=== PATIENT | female | born 1990 | race Caucasian/White ===

== ENCOUNTER 2017-08-17 11:07 | Inpatient (IN) | payer OTHER, MEDICAID ==
[~2017-08-17] VITALS: Ht 166.4 cm; Wt 67.1 kg
[~2017-08-17 11:07] MED LIST: ACET-1718 PO; ACET-3143 PO; IBU600 PO; IBU800 PO; IBUP800T37 PO; KET10 PO; LANT TOP; MET2 PO; PEN250 PO; PER PO; PREN-85 PO; [UNRECOGNIZED DRUG - CODE] MM
[2017-08-17] MEDS ORDERED: fentaNYL CITR 100 MCG/2 ML AMP IVP PRN (11:20)
[2017-08-17] MEDS ORDERED: METOCLOPRAMIDE 10 MG/2 ML SDV IVP PRN (11:20)
[2017-08-17] MEDS ORDERED: LIDOCAINE/SOD BICARB 8.4% SYR SC PRN (11:20)
[2017-08-17] MEDS ORDERED: FLUSH 10 ML SYR IVP PRN (11:20)
[2017-08-17] MEDS ORDERED: OXYTOCIN 30 UNIT/D5LR 500 ML 500 ML IV PRN (11:20)
[2017-08-17] MEDS ORDERED: FAMOTIDINE(*) 20MG/50ML PREMIX 50 ML IVPB PRN (11:20)
[2017-08-17] MEDS ORDERED: LIDOCAINE 1% LOCAL 300 MG/30ML INJ PRN (11:20)
[2017-08-17 11:47] LABS: PLATELET COUNT, AUTOMATED 185 K/uL (150-450)
[2017-08-17] MEDS: LR(*) 1000 ML BAG 1,000 ML IV SCH ×3 (12:00→22:28)
--- NOTE | 2017-08-17 12:34 | RADIOLOGY IMAGING REPORT ---
FACILITY: [facility] [place] PATIENT NAME: Erika Crump : 1990 MR: [id number] V: [id number] EXAM DATE: ORDERING PHYSICIAN: KT LESLIE TECHNOLOGIST: Location: [facility] Patient: Erika Crump : 1990 Visit/Account:[id number] Date of Sevice: 08/17/2017 Examination: OB >14 WEEKS Comparison: None. History: confirm interuterine demise. 31 week 5 day gestation by LMP. Findings: Focused transabdominal obstetric ultrasound with color Doppler and M-mode. Single intrauterine gestation in cephalic lie. No cardiac activity is identified on either beltran scale imaging, color Doppler, or M-mode. Overlapping calvarial bones. Anterior placenta. Parameters: Biparietal diameter: 7.75 cm, 31 weeks 1 day Head circumference: 28.59 cm, 31 weeks 3 days Abdominal circumference: 23.48 cm, 27 weeks 6 days Femur length: 6.02 cm, 31 weeks 3 days Composite gestational age based on Hadlock criteria is 30 weeks 4 days for an estimated delivery flakita e of 10/22/2017. Estimated weight is 1416 g which is at the third percentile based on LMP. IMPRESSION: demise. Results were discussed with KT LESLIE at 08/17/2017 12:31 PM. Report Dictated By: Modesto Love MD at 08/17/2017 12:17 PM Report E-Signed By: Modesto Love MD at 08/17/2017 12:31 PM WSN:[id number]
[2017-08-17 14:22] VITALS: BP 119/69; Ht 166.4 cm; Wt 67.1 kg
[2017-08-17] MEDS ORDERED: LIDO/EPI 2% MPF 1:200,000 20ML EPI PRN (15:15)
[2017-08-17] MEDS ORDERED: LIDOCAINE/PF 2% 200MG/10ML AMP 200 MG/10 ML AMPUL EPI PRN (15:15)
[2017-08-17] MEDS ORDERED: BUPIVACAINE 0.25% MPF INJ EPI PRN (15:15)
[2017-08-17] MEDS ORDERED: fentaNYL CITR 100 MCG/2 ML AMP IT PRN (15:15)
[2017-08-17] MEDS ORDERED: EPIDURAL KEYS XX PRN (15:15)
[2017-08-17] MEDS ORDERED: FENTANYL/ROPIVACAINE 100 ML BAG EPI PRN (15:15)
[2017-08-17] MEDS ORDERED: BUPIVACAINE 0.5% INJ 30ML VIAL EPI PRN (15:15)
[2017-08-17] MEDS: MISOPROSTOL 25 MCG CAP PV PRN ×2 (17:19→21:19)
--- NOTE | 2017-08-17 17:45 | History & Physical ---
History of Present Illness Age of Patient: 27 : 5 Para or TPAL: 3 EDC per LMP: Oct 15, 2017 Estimated Gestational Age: 31.4 Chief Complaint Decreased movement History of Present Illness Presented to office today with report of no movement since Thursday. IUFD confirmed on u/s in office. Discussed management with induction of labor and pt sent to [facility] for this. Healthy and pt. No complications. Healthy normal prior term deliveries. Past Medical, Surgical, Family and Obstetric Histories reviewed. Please see ACOG chart. History Allergies: Coded Allergies: No Known Allergies (Verified Allergy, Mild, 06/05/10) Family History: No Family History of: FH: diabetes mellitus FH: heart disease Malignant hyperthermia Med Rec Home Meds Reported Medications Vits W-Ca,Fe,Fa(<1MG) () 1 Each Tablet, 1 EACH PO, 0 Refills take while breast feeding 08/14/11 Discontinued Reported Medications Lanolin (Lanolin Oint) 30 Gm Oint, 0 TOP PRN, 0 Refills APPLY to Nipples as needed 08/14/11 Discontinued Scripts Ibuprofen (IBUPROFEN) 800 Mg Tablet, 1 TAB PO Q8H Y for PAIN, #30 TAB 0 Refills Prov:MILDRED OTOOLE MD 08/01/14 Acetaminophen With Codeine # 3 (ACETAMINOPHEN-COD #3 TABLET) 1 Each Tablet, 1-2 EACH PO Q4H Y for PAIN, #30 TAB 0 Refills Prov:MILDRED OTOOLE MD 08/01/14 Review of Systems All Systems Reviewed/Normal: Yes, Except as Noted Exam General Exam Vital Signs Vital Signs Date Time Temp Pulse Resp B/P (MAP) Pulse Ox O2 Delivery O2 Flow Rate FiO2 08/17/17 14:22 98.6 68 18 119/69 (86) 95 Room Air General Apperance: Alert/Awake/No Acute Distress Neuro: No Gross deficits ENT: Normal Cardiovascular: Regular Rate and Rhythm Respiratory: No Respiratory Distress Abdomen: Soft, Non-Tender, Non-Distended Integumentary: Skin Intact without Lesions or Rash Psychological: Alert & Oriented X3, Appropriate Mood & Affect Cervical Dialation: 2 Cervical Effacement (%): 50 Cervical Consistency: Moderate Cervical Position: Posterior Station: -2 Presentation: Vertex Medical Decision Making Data Points Result Diagram: 08/17/17 1136 VTE Prophylasis: Adult Deep Vein Thrombosis/Pulmonary: No Pharmacological Contraindicati: Pt at Low Risk for VTE Mechanical Contraindications: Pt at Low Risk for VTE Assessment and Plan Problems: (1) demise, greater than 22 weeks, antepartum, single gestation Assessment & Plan: Discussed plan to use cytotec for cervical ripening and labor induction and transition to Pitocin as progress is made. Plan to rupture membranes as cervix dilates a little more and comes forward. Expecting . Suspecting cord accident. (2) Rh negative status during Status: Acute Assessment & Plan: Rhogam with delivery. Problem Qualifiers (1) Rh negative status during : Trimester: third trimester Qualified Codes: O09.893 - Supervision of other high risk pregnancies, third trimester KT LESLIE MD Aug 17, 2017 17:45
--- NOTE | 2017-08-17 23:26 | Anesthesia OB Pre-Anes Eval ---
History of Present Illness Anesthesia Start Date: Aug 17, 2017 Anesthesia Start Time: 22:25 OB Anesthesia Diagnosis: induction - elective Complications: demise EDC: Oct 15, 2017 : 5 Para: 3 Vital Signs: Vital Signs Date Time Temp Pulse Resp B/P (MAP) Pulse Ox O2 Delivery O2 Flow Rate FiO2 08/17/17 14:22 98.6 68 18 119/69 (86) 95 Room Air Pain Ratin Result Diagram: 08/17/17 1136 Height (Inches): 65.50 Weight (Pounds): 148 BMI Calculated: 24.25 Past Medical History Medical History: no pertinent history Surgical History: other (wrist and foot, D&C) Previous Anesthesia: general, epidural Attended Childbirth Classes?: No Hx Anesthesia Reactions: No Hx Family Anesthesia Reaction: No Home Meds Reported Medications Vits W-Ca,Fe,Fa(<1MG) () 1 Each Tablet, 1 EACH PO, 0 Refills take while breast feeding 08/14/11 Discontinued Reported Medications Lanolin (Lanolin Oint) 30 Gm Oint, 0 TOP PRN, 0 Refills APPLY to Nipples as needed 08/14/11 Discontinued Scripts Ibuprofen (IBUPROFEN) 800 Mg Tablet, 1 TAB PO Q8H Y for PAIN, #30 TAB 0 Refills Prov:MILDRED OTOOLE MD 08/01/14 Acetaminophen With Codeine # 3 (ACETAMINOPHEN-COD #3 TABLET) 1 Each Tablet, 1-2 EACH PO Q4H Y for PAIN, #30 TAB 0 Refills Prov:MILDRED OTOOLE MD 08/01/14 Allergies: Coded Allergies: No Known Allergies (Verified Allergy, Mild, 06/05/10) Anesthesia OB ROS Neurological: No migraines/headaches, No seizures, No neuropathy ENT: Denies Tooth caps, Denies Loose teeth, Denies Chipped teeth, Denies Dentures, Denies Bridges, Denies Retainers, Denies Veneers, Denies Implants, Denies Tongue ring Pulmonary: No asthma, No smoker (pks/day/yrs) Airway Class: ll Cardiovascular ROS: No edema, No arrhythmia GI ROS: clear liquids Last Solids Date: Aug 17, 2017 ROS: No Herpes, No STD(s), No Liver Disease, No Renal Disease, Other Endocrine ROS: No diabetes, No gestational diabetes, No thyroid disorder Musculoskeletal ROS: No low back pain, No low back injury, No scoliosis ASA Classification: 2 Assessment and Plan Anesthesia Plan: CSE Assessment Past Medical, Surgical, Family and Obstetric Histories reviewed. Please see ACOG chart. Epidural anesthesia risks, complications and benefits explained to patient's satisfaction for labor and vaginal delivery and/or section. Reviewed experiences with last epidurals. No problems noted. Pt. states she legs were very numb and unable to move. States she prefers to have "liquid chlorine operator" medication. TAYLOR SANCHEZ CRNA Aug 17, 2017 23:26
--- NOTE | 2017-08-17 23:31 | Procedure Note ---
Anesthetic Placement Note Anesthesia Plan: CSE Permit for Anesthesia Signed: Yes Anesthesia Technique: Patient Sitting Anesthesia Prep: Chlorhexidine Interspace: L 3-4 Local Anesthetic: 1% Lidocaine, 25 Gauge Needle Amount Local - cc's: 2 Anesthesia Needle: 17g Touhy/Schliff Anesthesia Attempts: 1 Depth of LOS (cm): 4 Epidural Needle Placement: No CSF, No Blood, No Parasthesia Intrathecal Needle: 27 Gauge Pencan Cerebral Spinal Fluid: Yes, Clear Catheter Insertion (cm): 7 Catheter Type: Shah - Spring Wound Epidural Dressing: Tegaderm, Tape, Adhesive [place] Anesthesia Tray: Lot Number ([id number]), Expiration Date (2018-04-18), Reference Number ([id number]) Anesthesia Medications: Intrathecal Dose: mcg Fentanyl (15), mg Marcaine MPF (1.75), Time (2240) Epidural Test Dose: 1.5 Lido/Epi (1:200,000), Dose - mL (2), Time (2255), Negative Epidural Loading Dose: 0.2% Ropivicaine, With Fentanyl 2mcg/ml, Dose - ml (5), Time (2255) Epidural Infusion: 0.2% Ropivicaine, With Fentanyl 2mcg/ml, Start Time: (2256) Epidural Pump Setting: Bolus Dose - mL (5), Lockout - Minutes (20), Maintenance Rate - mL/hr (6), Maximum per Hour - mL (21) Complications: None Comment: Vital signs stable. Patient comfortable and condition stable. BP decreased, but pt. is asymptomatic. States she now feels tired and wants to sleep. Does not feel contractions or pressure. TAYLOR SANCHEZ CRNA Aug 17, 2017 23:31
[2017-08-18] MEDS ORDERED: OXYTOCIN 30 UNIT/D5LR 500 ML 500 ML IV PRN (01:45)
--- NOTE | 2017-08-18 02:33 | Anesthesia Progress Note ---
Progress/Maintenance Anesthesia Note Date: Aug 18, 2017 Anesthesia Note Time: 02:15 Pain Intensity: 0 Pump: On Pump Rate (ML/HR): 6 Sensory Level: T-12 Motor Level: Bending Knees-Bilateral Dilatation: 3 Position: Right, Tilt Assessment and Plan Assessment BP remains below 100/50s, cuff on elevated left arm. Pt. asymptomatic. RN giving Ephedrine 10 mg. Pt. does not feel contractions. TAYLOR SANCHEZ CRNA Aug 18, 2017 02:33
[2017-08-18] MEDS ORDERED: METHYLERGONOVINE MAL 0.2MG/ML ONE (02:51)
[2017-08-18] MEDS ORDERED: CARBOPROST TROMETHAM 250MCG/ML IM ONLY ONE (02:51)
[2017-08-18] MEDS ORDERED: LANOLIN OINT 7 GM TUBE TP PRN (03:15)
[2017-08-18] MEDS ORDERED: MAGNESIUM HYDROXIDE* 30ML UDCP PO PRN (03:15)
[2017-08-18] MEDS ORDERED: BENZOCAINE 20% 60 ML BTL TP PRN (03:15)
[2017-08-18] MEDS ORDERED: MEASLES,MUMP,RUBELLA VAC 0.5ML SC ONE (03:15)
[2017-08-18] MEDS ORDERED: GLYCERIN/WITCH HAZEL LEAF 1 PK TOP PRN (03:15)
[2017-08-18] MEDS ORDERED: DIPHTH/TETANUS/ACEL. PERTUSSIS IM ONE (03:15)
[2017-08-18] MEDS ORDERED: HYDROmorphone HCL 2 MG TAB PO PRN (03:15)
[2017-08-18] MEDS ORDERED: HYDROCORTISONE 2.5% CR 30GM TB PR PRN (03:15)
[2017-08-18] MEDS ORDERED: INFLUENZA VIRUS VAC 0.5 ML SYR IM ONLY ONE (03:15)
[2017-08-18] MEDS ORDERED: ACETAMINOPHEN 325 MG TAB PO PRN (03:15)
--- NOTE | 2017-08-18 03:21 | Anesthesia Progress Note ---
Progress/Maintenance Anesthesia Note Date: Aug 18, 2017 Anesthesia Note Time: 03:00 Pain Intensity: 0 Pump: Off Sensory Level: T-12 Motor Level: Bending Knees-Bilateral Dilatation: 10 Position: Semi-Fowlers Assessment and Plan Assessment No further medications given. Good tolerance of delivery. Epidural pump stopped and clampd. Will remove at a later time. Anesthesia Stop Day: Aug 18, 2017 Anesthesia Stop Time: 03:00 TAYLOR SANCHEZ CRNA Aug 18, 2017 03:21
[2017-08-18] MEDS ORDERED: LR(*) 1000 ML BAG 1,000 ML IV PRN (06:30)
[2017-08-18 07:10] VITALS: BP 93/58
[2017-08-18 07:50] VITALS: BP 115/63
--- NOTE | 2017-08-18 08:12 | OB/GYN Progress Note ---
OB Subjective Progress Notes Subjective Feeling well. Pain controlled and bleeding light. Has been up to ambulate and was light headed. Voiding well. : Voiding Well Pain: Mild OB Objective Physical Exam Vital Signs Date Time Temp Pulse Resp B/P (MAP) Pulse Ox O2 Delivery O2 Flow Rate FiO2 08/18/17 07:50 115/63 (80) 08/18/17 07:10 98.7 85 14 96 Room Air Intake and Output 08/19/17 07:00 Intake Total 500 ml Balance 500 ml Intake IV Total 500 ml General Appearance: Alert/Awake/No Acute Distress Neurological: No Gross deficits Respiratory: No Respiratory Distress Abdomen: Soft, Non-Tender, Non-Distended, Fundus Firm, Non-Tender Integumentary: Skin Intact without Lesions or Rash Psychological: Alert & Oriented X3, Appropriate Mood & Affect Result Diagram: 08/17/17 1136 Assessment and Plan 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 Discussed her desire for BTL. She is still thinking she would desire. Recommended she do at 4-6 weeks out due to the size of the uterus is still too far below the umbilicus. (2) Rh negative status during Status: Acute Problem Qualifiers (1) Rh negative status during : Trimester: third trimester Qualified Codes: O09.893 - Supervision of other high risk pregnancies, third trimester KT LESLIE MD Aug 18, 2017 08:12
[2017-08-18] MEDS ORDERED: IBUP800T37 PO (08:13)
--- NOTE | 2017-08-18 08:15 | Short(Outpt) Discharge Summary ---
Discharge Summary Reason for Hosp/Final Diag: (1) demise, greater than 22 weeks, antepartum, single gestation Hospital Course & Plan: Will discharge today. Discussed her desire for BTL. She is still thinking she would desire. Recommended she do at 4-6 weeks out due to the size of the uterus is still too far below the umbilicus. (2) Rh negative status during Status: Acute Departure Discharge to: Home, Self Care Discharge Instructions Home Meds Active Scripts Ibuprofen (IBUPROFEN) 800 Mg Tablet, 800 MG PO Q8H Y for PAIN, #30 TAB 1 Refill Prov:JESSE NOE MD 08/18/17 Reported Medications Vits W-Ca,Fe,Fa(<1MG) () 1 Each Tablet, 1 EACH PO, 0 Refills take while breast feeding 08/14/11 Discontinued Reported Medications Lanolin (Lanolin Oint) 30 Gm Oint, 0 TOP PRN, 0 Refills APPLY to Nipples as needed 08/14/11 Discontinued Scripts Ibuprofen (IBUPROFEN) 800 Mg Tablet, 1 TAB PO Q8H Y for PAIN, #30 TAB 0 Refills Prov:MILDRED OTOOLE MD 08/01/14 Acetaminophen With Codeine # 3 (ACETAMINOPHEN-COD #3 TABLET) 1 Each Tablet, 1-2 EACH PO Q4H Y for PAIN, #30 TAB 0 Refills Prov:MILDRED OTOOLE MD 08/01/14 Follow up Referrals: [employer] - In One Month @ [facility] with Jesse Noe Md Diet: Regular Activity: As Tolerated Copies to: JESSE NOE MD Problem Qualifiers (1) Rh negative status during : Trimester: third trimester Qualified Codes: O09.893 - Supervision of other high risk pregnancies, third trimester JESSE NOE MD Aug 18, 2017 08:15
[2017-08-18 09:00] VITALS: BP 112/69
[2017-08-18] MEDS ORDERED: IBUPROFEN 800 MG TAB PO SCH (09:00)
[2017-08-18] MEDS: DOCUSATE CALCIUM 240 MG CAP PO SCH ×2 (09:02→09:06)
--- NOTE | 2017-09-10 15:09 | OB Delivery Note ---
Delivery Note Vaginal Delivery Type: Spont. Vaginal Delivery Delivery Date: Aug 18, 2017 Delivery Time: 03:03 Estimated Gestational Age(wks): 31.4 Indication (if vag op): demise Delivery Anesthesia: Epidural Infant Sex: Male Infant Weight (gms): 1582 Estimated Blood Loss: 100 Notes: demise. Delivered with time of recorded as delivery time. True tight knot in the cord observed. Normal placenta. Normal male anatomy with no gross defects observed. No lacerations. No complications. Placenta spontaneous and intact. Regional Business Development Manager in Attendence: No Copies to: KT LESLIE MD, TRAVIS MD Sep 10, 2017 15:09
== END 2017-08-18 12:58 | disposition home or self-care (01) | DRG 775 ==
LOC: OB 11:07
PROVIDERS: ADMIT Obstetrics & Gynecology; ATTEND Obstetrics & Gynecology
PROC: 3E033VJ Introduction of Other Hormone into Peripheral Vein, Percutaneous Approach (ICD-10-PCS; 2017-08-17)
PROC: 10E0XZZ Delivery of Products of Conception, External Approach (ICD-10-PCS; principal; 2017-08-18)
PROC: 10907ZC Drainage of Amniotic Fluid, Therapeutic from Products of Conception, Via Natural or Artificial Opening (ICD-10-PCS; 2017-08-18)
PROC: 3E0P7VZ Introduction of Hormone into Female Reproductive, Via Natural or Artificial Opening (ICD-10-PCS; 2017-08-18)
DX: O36.4XX0 Maternal care for intrauterine death, not applicable or unspecified (principal); O36.0130 Maternal care for anti-D [Rh] antibodies, third trimester, not applicable or unspecified; Z37.1 Single stillbirth; Z3A.31 31 weeks gestation of pregnancy
CPT/HCPCS: 36415; 76805; 85025; 85461; 86850; 86870; 86900; 86901; 88307; J2791; J3010; J7120; S0020

== ENCOUNTER 2017-09-06 12:47 | Emergency (ER) | payer OTHER, MEDICAID ==
[2017-08-17 14:22] VITALS: Ht 165.1 cm; Wt 61.2 kg
[~2017-09-06] VITALS: Ht 165.1 cm; Wt 61.2 kg
--- NOTE | 2017-09-06 12:59 | ER Report ---
History and Physical Time Seen By MD: 12:59 HPI/ROS CHIEF COMPLAINT: Seizure versus syncope HISTORY OF PRESENT ILLNESS: Patient is a 27-year-old female who presents emergency department today after syncopal episode versus seizure. Patient was at nondenominational she had a loss of consciousness there is report of what appears to be tonic-clonic activity lasting for under 5 minutes stopping spontaneously. Patient was post ictal and also would become dizzy when stood up. Patient recently was admitted August 18 for cervical dilatation and delivery of an intrauterine demise at 31.4 weeks gestational age. She also has a history of seizure disorder reported as adolescent. Last seizure occurred when she was 16 she currently is not on any seizure medications. REVIEW OF SYSTEMS: Constitutional: No fever, no chills. Eyes: No discharge. ENT: No sore throat. Cardiovascular: No chest pain, no palpitations. Respiratory: No cough, no shortness of breath. Gastrointestinal: No abdominal pain, no vomiting. Genitourinary: No hematuria. Musculoskeletal: No back pain. Skin: No rashes. Neurological: No headache. Seizure-like activity Allergies: Coded Allergies: No Known Allergies (Verified Allergy, Mild, 09/06/17) Home Meds Discontinued Reported Medications Vits W-Ca,Fe,Fa(<1MG) () 1 Each Tablet, 1 EACH PO, 0 Refills take while breast feeding 08/14/11 Discontinued Scripts Ibuprofen (IBUPROFEN) 800 Mg Tablet, 800 MG PO Q8H Y for PAIN, #30 TAB 1 Refill Prov:KT LESLIE MD 08/18/17 Past Medical/Surgical History demise greater than 22 weeks, delivery on 08/18/2017. History of tonic clonic seizures this child off medications since she's been 16 years old. No seizures since that time until today. Hx Smoking: No Smoking Status: Never Smoker Exposure to Second Hand Smoke?: No Constitutional Vital Sign - Last 24 Hours 09/06/17 09/06/17 09/06/17 09/06/17 12:50 13:01 13:02 13:07 Temp 99.1 Pulse 63 67 60 Resp 16 26 B/P (MAP) 130/76 130/76 (94) Pulse Ox 92 93 94 O2 Delivery Room Air 09/06/17 09/06/17 09/06/17 09/06/17 13:12 13:17 13:22 13:27 Pulse 60 63 Resp 14 14 13 17 Pulse Ox 94 94 95 09/06/17 09/06/17 09/06/17 09/06/17 13:32 13:37 13:42 13:47 Pulse 59 60 75 70 Resp 12 8 13 7 Pulse Ox 95 98 95 98 09/06/17 09/06/17 09/06/17 13:52 14:17 14:22 Pulse 64 67 64 Resp 13 13 13 Pulse Ox 98 94 94 Intake and Output 09/06/17 09/06/17 09/07/17 15:00 23:00 07:00 Intake Total 1000 ml Balance 1000 ml Physical Exam General Appearance: The patient is alert, has no immediate need for airway protection and no signs of toxicity. Eyes: Pupils equal and round no pallor or injection. ENT, Mouth: Mucous membranes are moist. Respiratory: There are no retractions, lungs are clear to auscultation. Cardiovascular: Regular rate and rhythm. Gastrointestinal: Abdomen is soft and non tender, no masses, bowel sounds normal. Neurological: Somnolent but awake and conversant. GCS is 15 Skin: Warm and dry, no rashes. Musculoskeletal: Neck is supple non tender. Extremities are nontender, nonswollen and have full range of motion. Medical Decision Making Data Points Result Diagram: 09/06/17 1318 09/06/17 1318 Laboratory Hematology Test 09/06/17 13:17 09/06/17 13:18 09/06/17 13:23 Whole Blood Glucose 91 mg/DL (75-110) Red Blood Count 4.92 M/uL (4.17-5.56) Mean Corpuscular Volume 90.5 fL (80.0-96.0) Mean Corpuscular Hemoglobin 30.9 pg (26.0-33.0) Mean Corpuscular Hemoglobin Concent 34.2 g/dL (32.0-36.0) Red Cell Distribution Width 12.1 % (11.5-14.5) Mean Platelet Volume 8.3 fL (7.2-11.1) Neutrophils (%) (Auto) 51.6 % (39.4-72.5) Lymphocytes (%) (Auto) 40.8 % (17.6-49.6) Monocytes (%) (Auto) 6.1 % (4.1-12.4) Eosinophils (%) (Auto) 1.3 % (0.4-6.7) Basophils (%) (Auto) 0.2 % (0.3-1.4) Nucleated RBC Relative Count (auto) 0.0 /100WBC Neutrophils # (Auto) 2.9 K/uL (2.0-7.4) Lymphocytes # (Auto) 2.3 K/uL (1.3-3.6) Monocytes # (Auto) 0.3 K/uL (0.3-1.0) Eosinophils # (Auto) 0.1 K/uL (0.0-0.5) Basophils # (Auto) 0.0 K/uL (0.0-0.1) Nucleated RBC Absolute Count (auto) 0.00 K/uL Sodium Level 140 mmol/L (137-145) Potassium Level 4.0 mmol/L (3.5-5.0) Chloride Level 102 mmol/L (98-107) Carbon Dioxide Level 25 mmol/L (22-31) Blood Urea Nitrogen 11 mg/dl (7-18) Creatinine 0.80 mg/dl (0.52-1.04) Glomerular Filtration Rate Calc > 60.0 Random Glucose 82 mg/dl (75-110) Uric Acid 4.7 mg/dl (2.5-7.5) Calcium Level 9.8 mg/dl (8.4-10.2) Magnesium Level 2.0 mg/dl (1.7-2.2) Total Bilirubin 0.3 mg/dl (0.2-1.3) Aspartate Amino Transf (AST/SGOT) 30 U/L (0-35) Alanine Aminotransferase (ALT/SGPT) 46 U/L (0-56) Alkaline Phosphatase 88 U/L (0-126) Total Protein 7.2 gm/dl (6.3-8.2) Albumin 4.0 g/dl (3.5-5.0) Human Chorionic Gonadotropin, Qual Negative (NEGATIVE) Serum Alcohol < 10 mg/dl Urine Color Yellow Urine Clarity Clear Urine pH 6.0 pH (4.8-9.5) Urine Specific [place] 1.005 Urine Protein Negative mg/dL (NEGATIVE) Urine Glucose (UA) Negative mg/dL (NEGATIVE) Urine Ketones Negative mg/dL (NEGATIVE) Urine Blood Negative (NEGATIVE) Urine Nitrite Negative (NEGATIVE) Urine Bilirubin Negative (NEGATIVE) Urine Urobilinogen Negative mg/dL (0.2-1.9) Urine Leukocyte Esterase Negative (NEGATIVE) Urine RBC <1 /HPF (0-2/HPF) Urine WBC <1 /HPF (0-5/HPF) Urine Squamous Epithelial Cells Moderate /LPF (</=FEW) Urine Bacteria Negative /HPF (NONE-FEW) Urine Mucus None /HPF (NONE-FEW) Urine Random Total Protein 11 mg/dl (<11) Urine Opiates Screen Negative Urine Barbiturates Screen Negative Ur Tricyclic Antidepressants Screen Negative Urine Phencyclidine Screen Negative Urine Amphetamines Screen Negative Urine Benzodiazepines Screen Negative Urine Cocaine Screen Negative Urine Cannabinoids Screen Negative Chemistry Test 09/06/17 13:17 09/06/17 13:18 09/06/17 13:23 Whole Blood Glucose 91 mg/DL (75-110) White Blood Count 5.7 k/uL (4.5-11.0) Red Blood Count 4.92 M/uL (4.17-5.56) Hemoglobin 15.2 g/dL (12.0-16.0) Hematocrit 44.5 % (34.0-47.0) Mean Corpuscular Volume 90.5 fL (80.0-96.0) Mean Corpuscular Hemoglobin 30.9 pg (26.0-33.0) Mean Corpuscular Hemoglobin Concent 34.2 g/dL (32.0-36.0) Red Cell Distribution Width 12.1 % (11.5-14.5) Platelet Count 255 K/uL (150-450) Mean Platelet Volume 8.3 fL (7.2-11.1) Neutrophils (%) (Auto) 51.6 % (39.4-72.5) Lymphocytes (%) (Auto) 40.8 % (17.6-49.6) Monocytes (%) (Auto) 6.1 % (4.1-12.4) Eosinophils (%) (Auto) 1.3 % (0.4-6.7) Basophils (%) (Auto) 0.2 % (0.3-1.4) Nucleated RBC Relative Count (auto) 0.0 /100WBC Neutrophils # (Auto) 2.9 K/uL (2.0-7.4) Lymphocytes # (Auto) 2.3 K/uL (1.3-3.6) Monocytes # (Auto) 0.3 K/uL (0.3-1.0) Eosinophils # (Auto) 0.1 K/uL (0.0-0.5) Basophils # (Auto) 0.0 K/uL (0.0-0.1) Nucleated RBC Absolute Count (auto) 0.00 K/uL Glomerular Filtration Rate Calc > 60.0 Uric Acid 4.7 mg/dl (2.5-7.5) Calcium Level 9.8 mg/dl (8.4-10.2) Magnesium Level 2.0 mg/dl (1.7-2.2) Total Bilirubin 0.3 mg/dl (0.2-1.3) Aspartate Amino Transf (AST/SGOT) 30 U/L (0-35) Alanine Aminotransferase (ALT/SGPT) 46 U/L (0-56) Alkaline Phosphatase 88 U/L (0-126) Total Protein 7.2 gm/dl (6.3-8.2) Albumin 4.0 g/dl (3.5-5.0) Human Chorionic Gonadotropin, Qual Negative (NEGATIVE) Serum Alcohol < 10 mg/dl Urine Color Yellow Urine Clarity Clear Urine pH 6.0 pH (4.8-9.5) Urine Specific [place] 1.005 Urine Protein Negative mg/dL (NEGATIVE) Urine Glucose (UA) Negative mg/dL (NEGATIVE) Urine Ketones Negative mg/dL (NEGATIVE) Urine Blood Negative (NEGATIVE) Urine Nitrite Negative (NEGATIVE) Urine Bilirubin Negative (NEGATIVE) Urine Urobilinogen Negative mg/dL (0.2-1.9) Urine Leukocyte Esterase Negative (NEGATIVE) Urine RBC <1 /HPF (0-2/HPF) Urine WBC <1 /HPF (0-5/HPF) Urine Squamous Epithelial Cells Moderate /LPF (</=FEW) Urine Bacteria Negative /HPF (NONE-FEW) Urine Mucus None /HPF (NONE-FEW) Urine Random Total Protein 11 mg/dl (<11) Urine Opiates Screen Negative Urine Barbiturates Screen Negative Ur Tricyclic Antidepressants Screen Negative Urine Phencyclidine Screen Negative Urine Amphetamines Screen Negative Urine Benzodiazepines Screen Negative Urine Cocaine Screen Negative Urine Cannabinoids Screen Negative Toxicology Test 09/06/17 13:18 09/06/17 13:23 Serum Alcohol < 10 mg/dl Urine Opiates Screen Negative Urine Barbiturates Screen Negative Ur Tricyclic Antidepressants Screen Negative Urine Phencyclidine Screen Negative Urine Amphetamines Screen Negative Urine Benzodiazepines Screen Negative Urine Cocaine Screen Negative Urine Cannabinoids Screen Negative Urinalysis Test 09/06/17 13:23 Urine Color Yellow Urine Clarity Clear Urine pH 6.0 pH (4.8-9.5) Urine Specific [place] 1.005 Urine Protein Negative mg/dL (NEGATIVE) Urine Glucose (UA) Negative mg/dL (NEGATIVE) Urine Ketones Negative mg/dL (NEGATIVE) Urine Blood Negative (NEGATIVE) Urine Nitrite Negative (NEGATIVE) Urine Bilirubin Negative (NEGATIVE) Urine Urobilinogen Negative mg/dL (0.2-1.9) Urine Leukocyte Esterase Negative (NEGATIVE) Urine RBC <1 /HPF (0-2/HPF) Urine WBC <1 /HPF (0-5/HPF) Urine Squamous Epithelial Cells Moderate /LPF (</=FEW) Urine Bacteria Negative /HPF (NONE-FEW) Urine Mucus None /HPF (NONE-FEW) Urine Random Total Protein 11 mg/dl (<11) EKG/Imaging EKG Interpretation EKG shows normal sinus rhythm with right bundle-branch block pattern Monitor Interpretation: Normal Sinus Rhythm ED Course/Re-evaluation Clinical Indication for ER IV: Hydration, IV Access ED Course 09/06/2017 1:30:05 pm plan at this time will be to evaluate for seizure with a CT of the head electrolytes CBC. We will also perform EKG urinalysis urine drug screen along with preeclampsia labs including random total protein of the urine and uric acid. Patient's initial blood pressure is 130/96. Current blood pressure is 130/76. 09/06/2017 2:45:06 pm case was discussed with Dr. Zenobia Aguirre discussed concern of possible preeclampsia, patient normotensive with no urine protein found also uric acid was normal. Patient not having a headache or right upper quadrant pain no evidence of hemolysis. Plan at this time will be discharged home with instructions to follow-up with primary care provider Decision to Disposition Date: Sep 06, 2017 Decision to Disposition Time: 14:43 Depart Departure Latest Vital Signs Vital Signs Date Time Temp Pulse Resp B/P (MAP) Pulse Ox O2 Delivery O2 Flow Rate FiO2 09/06/17 14:22 64 13 94 09/06/17 13:01 130/76 (94) 09/06/17 12:50 99.1 Room Air Impression: Primary Impression: Seizure Condition: Improved Disposition: HOME OR SELF-CARE Referrals: SHADE ROSENBERG MD Schedule a follow-up appointment with neurology for reevaluation in the in need of possible antiepileptic medication MIKI GUADARRAMA MD Schedule follow-up appointment with Dr. Guadarrama if you do not have your own primary care provider New Scripts No Active Prescriptions or Reported Meds Patient Instructions: Recurrent Seizures in Adults (DC) Additional Instructions: No driving until cleared by her primary care provider ELLIOTT WARD MD Sep 06, 2017 12:59
[2017-09-06] MEDS ORDERED: NS(*) 0.9% 1000 ML BAG 1,000 ML IV ONE (13:03)
[2017-09-06 13:37] LABS: PLATELET COUNT, AUTOMATED 255 K/uL (150-450)
--- NOTE | 2017-09-06 14:26 | RADIOLOGY IMAGING REPORT ---
FACILITY: [facility] PATIENT NAME: Erika Crump : 1990 MR: [id number] V: [id number] EXAM DATE: ORDERING PHYSICIAN: ELLIOTT WARD TECHNOLOGIST: Location: [facility] [place] Patient: Erika Crump : 1990 Visit/Account:[id number] Date of Sevice: 09/06/2017 EXAMINATION: CT Head Without Contrast 09/06/2017 1:03 PM HISTORY: seizure TECHNIQUE: Contiguous axial images were obtained from the skull base to the vertex without intraven ous contrast. One of the following dose optimization techniques was utilized in the performance of this exam: Autom ated exposure control; adjustment of the mA and/or kV according to the patient's size; or use of an i terative reconstruction technique. Specific details can be referenced in the facility's radiology C T exam operational policy. COMPARISON STUDIES: none. FINDINGS: Ventricles / sulci / fissures: negative Masses / hemorrhage / midline shift: negative White matter: negative Choudhary-white differentiation: negative Extra-axial spaces: negative Dural venous sinuses / arterial structures: negative Skull base / calvarium: negative Visualized mastoid air cells / paranasal sinuses: negative IMPRESSION: Normal head CT. No evidence of mass, acute ischemia or hemorrhage. Report Dictated By: Yosef Patel MD at 09/06/2017 2:21 PM Report E-Signed By: Yosef Patel MD at 09/06/2017 2:23 PM WSN:[id number]
[2017-09-06 14:51] VITALS: BP 112/73
--- NOTE | 2017-09-06 15:42 | EKG ---
FACILITY: [facility] [place] PATIENT NAME: CLARISSA MICHELLE : [id number] MR: [id number] V: [id number] EXAM DATE: ORDERING PHYSICIAN: ELLIOTT WARD TECHNOLOGIST: Test Reason : Blood Pressure : / mmHG Vent. Rate : 060 BPM Atrial Rate : 060 BPM P-R Int : 154 ms QRS Dur : 136 ms QT Int : 438 ms P-R-T Axes : 035 096 040 degrees QTc Int : 438 ms Normal sinus rhythm Indeterminate axis Right bundle branch block Abnormal ECG No previous ECGs available Confirmed by ABELARDO WARE ([id number]) on 09/06/2017 3:52:50 PM Referred By: Confirmed By:ABELARDO WARE
== END 2017-09-06 14:52 | disposition home or self-care (01) ==
LOC: ER 13:00
DX: R56.9 Unspecified convulsions (principal); R42 Dizziness and giddiness; I45.10 Unspecified right bundle-branch block
CPT/HCPCS: 36416; 70450; 80305; 80320; 81001; 82948; 83735; 84156; 84550; 84703; 85025; 93005; 96360; 99284; J7030; 82040; 82247; 82310; 82374; 82435; 82565; 82947; 84075; 84132; 84155; 84295; 84450; 84460; 84520

== ENCOUNTER 2017-09-25 01:23 | Day surgery (SDC) | payer OTHER, MEDICAID ==
[2017-08-17 14:22] VITALS: Ht 165.1 cm; Wt 62.1 kg
[~2017-09-25] VITALS: Ht 165.1 cm; Wt 62.1 kg
[2017-09-25] VITALS (7 sets, daily range): BP systolic 95–110; BP diastolic 60–76
[2017-09-25] MEDS: FAMOTIDINE 20 MG TAB PO ONE ×2 (07:48→08:15)
[2017-09-25] MEDS: NORMOSOL R SOLN(*) 1000 ML BAG 1,000 ML IV PRN ×2 (07:49→09:54)
[2017-09-25] MEDS ORDERED: FAMOTIDINE(*) 20MG/50ML PREMIX 50 ML IVPB ONE (08:03)
[2017-09-25 08:14] LABS: PLATELET COUNT, AUTOMATED 202 K/uL (150-450)
[2017-09-25] MEDS ORDERED: LIDOCAINE/SOD BICARB 8.4% SYR ID ONE (08:15)
[2017-09-25] MEDS ORDERED: MIDAZOLAM 2 MG/2 ML VIAL IVP ONE (08:15)
[2017-09-25] MEDS ORDERED: ROCURONIUM BROM 10 MG/ML 10 ML ONE (08:32)
[2017-09-25] MEDS ORDERED: LIDOCAINE MPF 1% 5 ML VIAL ONE (08:32)
[2017-09-25] MEDS ORDERED: DEXAMETHASONE SOD PHOS 10MG/ML ONE (08:32)
[2017-09-25] MEDS ORDERED: ONDANSETRON 4 MG/2 ML VIAL ONE (08:32)
[2017-09-25] MEDS ORDERED: PROPOFOL EMUL(*) 10MG/ML 20 ML 40 ML ONE (08:32)
[2017-09-25] MEDS ORDERED: SUGAMMADEX SOD 200 MG/2 ML SDV ONE (09:27)
[2017-09-25] MEDS ORDERED: LR(*) 1000 ML BAG 1,000 ML IV ONE (09:39)
--- NOTE | 2017-09-25 09:39 | Post Operative Note ---
Operative Note - [employer] Operative Day Date: Sep 25, 2017 Time: 09:36 Physicians Surgeon: Lenny Bellamy DO Anesthesia: GET with 20 cc of 0.2% Rupivicaine Diagnosis Pre-Op Diagnosis: 27 y/o Desires sterility Post-Op Diagnosis: same Procedure Findings: Normal tubes and ovaries bilaterally. Bilateral Fallopian tubes with falope rings over isthmal regions. Uterus 9 week size. Vermiculation of Bilateral Utreters. Smooth liver. Normal galbladder. Procedure(s): Laparoscopic BTL with falope rings Specimen Removed:(Maybe N/A): 0 Complications: 0 known Fluids Fluids: 850 u/o=100 Estimated Blood Loss: 10 Dictated Date OP Note Dictated: Sep 25, 2017 Time OP Note Dictated: 09:52 LENNY BELLAMY DO Sep 25, 2017 09:39
[2017-09-25] MEDS ORDERED: METOCLOPRAMIDE 10 MG/2 ML SDV IVP PRN (09:40)
[2017-09-25] MEDS ORDERED: ONDANSETRON 4 MG/2 ML VIAL IVP PRN (09:40)
[2017-09-25] MEDS ORDERED: IBUP800T37 PO (09:41)
[2017-09-25] MEDS ORDERED: HYDR-4309 PO (09:41)
--- NOTE | 2017-09-25 09:44 | OB/GYN Discharge Summary ---
Discharge Summary Reason for Hosp/Final Diag: (1) Female sterility Hospital Course & Plan: Presented for a BTL. Underwent procedure with out any known complications. Pt remained in the hospital until she was ambulatory, voiding, and tolerating PO intake. She was discharged home from the recovery. Lates Vital Signs Vital Signs Date Time Temp Pulse Resp B/P (MAP) Pulse Ox O2 Delivery O2 Flow Rate FiO2 09/25/17 08:16 97.9 65 16 105/76 (86) 94 Room Air Weight (Pounds): 137 Result Diagram: 09/25/17 0745 Condition: Improved Discharge: Home Home Meds Active Scripts Ibuprofen (IBUPROFEN) 800 Mg Tablet, 1 TAB PO Q8H for PAIN, #30 TAB Prov:LENNY LAMB DO 09/25/17 Hydrocodone Bit/Acetaminophen (NORCO 5-325 TABLET) 1 Each Tablet, 1 EACH PO Q4- 6H Y for PAIN, #30 TAB Prov:LENNY LAMB DO 09/25/17 [facility] [phone], Dr. Lamb [phone] Follow up in: 2 wks PO Discharge Diet: As Tolerates, Increase Fluid Intake Discharge Activity: As Tolerates, Pelvic Rest LENNY LAMB DO Sep 25, 2017 09:44
[2017-09-25] MEDS ORDERED: fentaNYL CITR 100 MCG/2 ML AMP ONE (09:52)
[2017-09-25] MEDS ORDERED: ACETAMINOPHEN(*)1000 MG/100 ML 100 ML IVPB ONE (10:20)
[2017-09-25] MEDS ORDERED: APAP/HYDROCODONE 325/5 TAB ONE (10:46)
[2017-09-25] MEDS ORDERED: ROPIVACAINE 0.2% 20 ML VIAL ONE (12:10)
--- NOTE | 2017-09-25 16:14 | OPERATIVE REPORT 1 ---
EVENT DATE: September 25, 2017 SURGEON: Roberto Bellamy DO ANESTHESIOLOGIST: Herber Jean-Baptiste MD ANESTHESIA: General endotracheal intubation with 20 mL of 0.2% ropivacaine. PREOPERATIVE DIAGNOSES 1. A 27-year-old 5, para 4. 2. Desires permanent sterility. POSTOPERATIVE DIAGNOSES 1. A 27-year-old 5, para 4. 2. Desires permanent sterility. PROCEDURE PERFORMED Laparoscopic bilateral tubal ligation with Falope rings. FINDINGS Normal tubes and ovaries bilaterally. Bilateral fallopian tubes with Falope rings over isthmus regions. Uterus 9 weeks' size. Vermiculation of bilateral ureters. Smooth liver. Normal gallbladder. ESTIMATED BLOOD LOSS 10 mL INTRAVENOUS FLUIDS 850 mL URINE OUTPUT 100 mL PATHOLOGY None. COMPLICATIONS None known. CONDITION Stable to PACU, then to recovery. COUNTS Correct times two for all needles, laps, sponges, and instruments. INDICATIONS AND CONSENT The patient is a 27-year-old 5, para 4, who desires permanent sterility. She was counseled on risks, benefits, and alternatives and agrees to proceed with laparoscopic tubal ligation. The patient signed the appropriate consents and was taken to the operating room. DESCRIPTION OF PROCEDURE The patient was taken to the operating room where she was placed in the dorsal supine position. She had general endotracheal intubation and anesthesia achieved. The patient was placed in the dorsal lithotomy position. She was prepped and draped in the usual sterile manner. A sterile speculum was placed in the vagina. The cervix was grasped with an Allis clamp. The uterus sounded to 9 cm. A uterine manipulator was placed and the uterus inflated to help with manipulation during the procedure. The uterine manipulator placed, attention was then turned to the abdomen. The surgeon's gloves were then changed. Laparoscopic procedure: A 5 mm incision was then created with a scalpel at the umbilicus. The abdomen was entered under laparoscopic visualization. A pneumoperitoneum was achieved. Once the pneumoperitoneum was achieved, the abdomen was inspected and was found to be without injury. Attention was then turned to placing the 8 mm trocar. The 8 mm trocar was placed at midline approximately 2 fingerbreadths above the pubic symphysis. After making an 8 mm incision, the 8 mm trocar was placed directly under laparoscopic visualization. With the trocar placed, the uterus was moved. Both ovaries were easily visualized. Both fallopian tubes were easily visualized. The Falope ring applicator was used. The right fallopian tube was grasped in the mid isthmus region with the Falope ring applicator. The device was applied, and it was noted that there was one Falope ring on the isthmus region of the fallopian tube with blanching immediately noted. Attention was then turned to the opposite fallopian tube. The left fallopian tube was grasped in the mid isthmus region. The Falope ring applicator was applied, and the Falope ring was easily applied over the segment. With the Falope ring over the mid isthmus segment, immediate blanching was noted. Pictures were taken. The 8 mm trocar was removed under laparoscopic visualization. Hemostasis was noted. The pneumoperitoneum was released, and the 5 mm trocar was removed from the abdomen. The skin incisions were then closed with a 4-0 Monocryl in a running manner. With the skin incisions closed, Dermabond was placed over the incisions. Attention was then turned to removing the uterine manipulator. The uterine manipulator was removed, and all instruments were then removed from the vagina. At this point, the patient was awoken and transferred to the recovery room in stable condition. VIRGILIO
[2017-09-25] MEDS ORDERED: IBUPROFEN 800 MG TAB PO SCH (17:00)
== END 2017-09-25 10:45 | disposition home or self-care (01) ==
LOC: OR 01:23
PROVIDERS: ATTEND Student in an Organized Health Care Education/Training Program
DX: Z30.2 Encounter for sterilization (principal)
CPT/HCPCS: 36415; 58671; 84703; 85025; J0131; J1100; J2001; J2405; J2704; J2795; J3010; J3490

== ENCOUNTER → 2018-01-06 | Outpatient (CLI) | payer OTHER ==
[2017-08-17 14:22] VITALS: BMI 24.2
[~2018-01-06] MED LIST changes: +HYDR-4309 PO
== END ==
LOC: LAB 15:28
PROVIDERS: ATTEND Psychiatry & Neurology Neurology
DX: R56.9 Unspecified convulsions (principal)
CPT/HCPCS: 36415; 80177

== ENCOUNTER 2018-02-15 18:58 | Emergency (ER) | payer OTHER ==
[2017-08-17 14:22] VITALS: Wt 62.1 kg
--- NOTE | 2018-02-15 19:06 | ER Report ---
History and Physical Time Seen By MD: 19:05 HPI/ROS CHIEF COMPLAINT: seizure HISTORY OF PRESENT ILLNESS: This is a 28 year old female. She has a history of seizures recently and is seeing a neurologist for this. Recently started on Keppra 500mg XR, taking 1000mg once a day. Had a seizure this afternoon. Tonic- clonic movements with post-ictal state. Had taken oral dissolving Clonazepam 1mg tablet after the seizure. Given 1mg Ativan on arrival here. Slowly improving in her mental status but still post-ictal. No recent illnesses. No missed medicines. No other new medicines or medicine changes. Has follow-up with neurology coming up. REVIEW OF SYSTEMS: Unable to obtain initially. Allergies: Coded Allergies: povidone-iodine (Verified Allergy, Intermediate, RASH, 02/15/18) Home Meds Active Scripts Levetiracetam (KEPPRA XR) 500 Mg Tab.er.24h, 500 MG PO DIRECTED, #90 TAB 0 Refills Take 2 tablets in the morning and 1 tablet at bedtime. Prov:JOSE MEDINA MD 02/15/18 Reported Medications Levetiracetam (LEVETIRACETAM) 500 Mg Tab.er.24h, 1000 MG PO QDAY, TAB 02/15/18 Clonazepam (CLONAZEPAM) 1 Mg Tab.rapdis, 1 MG PO PRN Y for SEIZURE, #6 TAB 02/15/18 Discontinued Scripts Ibuprofen (IBUPROFEN) 800 Mg Tablet, 1 TAB PO Q8H for PAIN, #30 TAB Prov:LENNY LAMB DO 09/25/17 Hydrocodone Bit/Acetaminophen (NORCO 5-325 TABLET) 1 Each Tablet, 1 EACH PO Q4- 6H Y for PAIN, #30 TAB Prov:LENNY LAMB DO 09/25/17 Reviewed Nurses Notes: Yes Hx Smoking: No Smoking Status: Never Smoker Exposure to Second Hand Smoke?: No Hx Substance Use Disorder: No Constitutional Vital Sign - Last 24 Hours 02/15/18 02/15/18 02/15/18 02/15/18 19:00 19:05 19:28 19:30 Temp 98.2 Pulse 60 67 Resp 16 14 B/P (MAP) 116/68 116/68 (84) 97/67 (77) Pulse Ox 97 97 O2 Delivery Room Air 02/15/18 02/15/18 02/15/1818 19:35 19:50 20:23 20:30 Pulse 67 62 Resp 15 14 B/P (MAP) 100/61 (74) 99/59 (72) Pulse Ox 94 94 02/15/18 02/15/18 02/15/18 02/15/18 20:35 20:50 20:55 21:00 Pulse 63 59 57 Resp 14 13 12 B/P (MAP) 89/55 (66) Pulse Ox 95 93 94 02/15/18 02/15/18 02/15/18 02/15/18 21:10 21:25 21:30 22:00 Pulse 56 57 74 60 Resp 12 11 10 15 B/P (MAP) 98/73 (81) 93/67 (76) Pulse Ox 94 94 97 96 02/15/18 02/15/18 02/15/18 02/15/18 22:05 22:10 22:15 22:17 Pulse 58 69 69 Resp 13 10 14 B/P (MAP) 92/48 (63) Pulse Ox 96 97 96 02/15/18 22:20 Pulse 72 Resp 13 Physical Exam General Appearance: The patient is alert, but very sleepy. No immediate need for airway protection. Eyes: Pupils are equal, round. No pallor, injection or icterus. ENT: Mucous membranes are moist. Normal oral mucosa. Posterior oropharynx is normal. Neck: Supple and non tender. No lymphadenopathy. Respiratory: Lungs are clear to auscultation. There are no retractions or accessory muscle use. Cardiovascular: Regular rate and rhythm. No murmurs, gallops or rubs. Normal capillary refill. No edema. Gastrointestinal: Abdomen is soft and non tender. Nondistended. Normal active bowel sounds. Neurological: Alert and oriented x3. Unable to participate with full neuro exam at this time. Able to move all extremities. No obvious focal deficits. Skin: Warm and dry. No rashes. Musculoskeletal: Extremities are nontender. No tenderness in palpation of the cervical, thoracic and lumbar spine. DIFFERENTIAL DIAGNOSIS: After history and physical exam, differential diagnosis was considered for a seizure including but not limited to electrolyte abnormality, medication noncompliance, head injury, and breakthrough seizure. Medical Decision Making Data Points Result Diagram: 02/15/18190702/15/181907 Laboratory Hematology Test 02/15/18 19:08 02/15/18 20:25 Red Blood Count 4.95 M/uL (4.17-5.56) Mean Corpuscular Volume 89.0 fL (80.0-96.0) Mean Corpuscular Hemoglobin 31.2 pg (26.0-33.0) Mean Corpuscular Hemoglobin Concent 35.1 g/dL (32.0-36.0) Red Cell Distribution Width 12.8 % (11.5-14.5) Mean Platelet Volume 8.3 fL (7.2-11.1) Neutrophils (%) (Auto) 62.8 % (39.4-72.5) Lymphocytes (%) (Auto) 31.3 % (17.6-49.6) Monocytes (%) (Auto) 5.2 % (4.1-12.4) Eosinophils (%) (Auto) 0.4 % (0.4-6.7) Basophils (%) (Auto) 0.3 % (0.3-1.4) Nucleated RBC Relative Count (auto) 0.1 /100WBC Neutrophils # (Auto) 4.6 K/uL (2.0-7.4) Lymphocytes # (Auto) 2.3 K/uL (1.3-3.6) Monocytes # (Auto) 0.4 K/uL (0.3-1.0) Eosinophils # (Auto) 0.0 K/uL (0.0-0.5) Basophils # (Auto) 0.0 K/uL (0.0-0.1) Nucleated RBC Absolute Count (auto) 0.01 K/uL Sodium Level 142 mmol/L (137-145) Potassium Level 4.1 mmol/L (3.5-5.0) Chloride Level 104 mmol/L (98-107) Carbon Dioxide Level 27 mmol/L (22-31) Blood Urea Nitrogen 14 mg/dl (7-18) Creatinine 0.80 mg/dl (0.52-1.04) Glomerular Filtration Rate Calc > 60.0 Random Glucose 95 mg/dl (75-110) Calcium Level 9.6 mg/dl (8.4-10.2) Magnesium Level 2.2 mg/dl (1.7-2.2) Total Bilirubin 0.4 mg/dl (0.2-1.3) Aspartate Amino Transf (AST/SGOT) 26 U/L (0-35) Alanine Aminotransferase (ALT/SGPT) 28 U/L (0-56) Alkaline Phosphatase 58 U/L (0-126) Total Protein 7.9 g/dl (6.3-8.2) Albumin 4.9 g/dl (3.5-5.0) Human Chorionic Gonadotropin, Qual Negative (NEGATIVE) Acetaminophen Level < 10 ug/ml Serum Alcohol < 10 mg/dl Urine Color Straw Urine Clarity Clear Urine pH 6.0 pH (4.8-9.5) Urine Specific [place] 1.010 Urine Protein Negative mg/dL (NEGATIVE) Urine Glucose (UA) Negative mg/dL (NEGATIVE) Urine Ketones 20 mg/dL (NEGATIVE) Urine Blood Negative (NEGATIVE) Urine Nitrite Negative (NEGATIVE) Urine Bilirubin Negative (NEGATIVE) Urine Urobilinogen Negative mg/dL (0.2-1.9) Urine Leukocyte Esterase Negative (NEGATIVE) Urine RBC <1 /HPF (0-2/HPF) Urine WBC None /HPF (0-5/HPF) Urine Squamous Epithelial Cells None /LPF (</=FEW) Urine Bacteria Negative /HPF (NONE-FEW) Urine Mucus None /HPF (NONE-FEW) Urine Opiates Screen Negative Urine Barbiturates Screen Negative Ur Tricyclic Antidepressants Screen Negative Urine Phencyclidine Screen Negative Urine Amphetamines Screen Negative Urine Benzodiazepines Screen Negative Urine Cocaine Screen Negative Urine Cannabinoids Screen Negative Chemistry Test 02/15/18 19:08 02/15/18 20:25 White Blood Count 7.4 k/uL (4.5-11.0) Red Blood Count 4.95 M/uL (4.17-5.56) Hemoglobin 15.4 g/dL (12.0-16.0) Hematocrit 44.1 % (34.0-47.0) Mean Corpuscular Volume 89.0 fL (80.0-96.0) Mean Corpuscular Hemoglobin 31.2 pg (26.0-33.0) Mean Corpuscular Hemoglobin Concent 35.1 g/dL (32.0-36.0) Red Cell Distribution Width 12.8 % (11.5-14.5) Platelet Count 258 K/uL (150-450) Mean Platelet Volume 8.3 fL (7.2-11.1) Neutrophils (%) (Auto) 62.8 % (39.4-72.5) Lymphocytes (%) (Auto) 31.3 % (17.6-49.6) Monocytes (%) (Auto) 5.2 % (4.1-12.4) Eosinophils (%) (Auto) 0.4 % (0.4-6.7) Basophils (%) (Auto) 0.3 % (0.3-1.4) Nucleated RBC Relative Count (auto) 0.1 /100WBC Neutrophils # (Auto) 4.6 K/uL (2.0-7.4) Lymphocytes # (Auto) 2.3 K/uL (1.3-3.6) Monocytes # (Auto) 0.4 K/uL (0.3-1.0) Eosinophils # (Auto) 0.0 K/uL (0.0-0.5) Basophils # (Auto) 0.0 K/uL (0.0-0.1) Nucleated RBC Absolute Count (auto) 0.01 K/uL Glomerular Filtration Rate Calc > 60.0 Calcium Level 9.6 mg/dl (8.4-10.2) Magnesium Level 2.2 mg/dl (1.7-2.2) Total Bilirubin 0.4 mg/dl (0.2-1.3) Aspartate Amino Transf (AST/SGOT) 26 U/L (0-35) Alanine Aminotransferase (ALT/SGPT) 28 U/L (0-56) Alkaline Phosphatase 58 U/L (0-126) Total Protein 7.9 g/dl (6.3-8.2) Albumin 4.9 g/dl (3.5-5.0) Human Chorionic Gonadotropin, Qual Negative (NEGATIVE) Acetaminophen Level < 10 ug/ml Serum Alcohol < 10 mg/dl Urine Color Straw Urine Clarity Clear Urine pH 6.0 pH (4.8-9.5) Urine Specific [place] 1.010 Urine Protein Negative mg/dL (NEGATIVE) Urine Glucose (UA) Negative mg/dL (NEGATIVE) Urine Ketones 20 mg/dL (NEGATIVE) Urine Blood Negative (NEGATIVE) Urine Nitrite Negative (NEGATIVE) Urine Bilirubin Negative (NEGATIVE) Urine Urobilinogen Negative mg/dL (0.2-1.9) Urine Leukocyte Esterase Negative (NEGATIVE) Urine RBC <1 /HPF (0-2/HPF) Urine WBC None /HPF (0-5/HPF) Urine Squamous Epithelial Cells None /LPF (</=FEW) Urine Bacteria Negative /HPF (NONE-FEW) Urine Mucus None /HPF (NONE-FEW) Urine Opiates Screen Negative Urine Barbiturates Screen Negative Ur Tricyclic Antidepressants Screen Negative Urine Phencyclidine Screen Negative Urine Amphetamines Screen Negative Urine Benzodiazepines Screen Negative Urine Cocaine Screen Negative Urine Cannabinoids Screen Negative Toxicology Test 02/15/18 19:08 02/15/18 20:25 Acetaminophen Level < 10 ug/ml Serum Alcohol < 10 mg/dl Urine Opiates Screen Negative Urine Barbiturates Screen Negative Ur Tricyclic Antidepressants Screen Negative Urine Phencyclidine Screen Negative Urine Amphetamines Screen Negative Urine Benzodiazepines Screen Negative Urine Cocaine Screen Negative Urine Cannabinoids Screen Negative Urinalysis Test 02/15/18 20:25 Urine Color Straw Urine Clarity Clear Urine pH 6.0 pH (4.8-9.5) Urine Specific [place] 1.010 Urine Protein Negative mg/dL (NEGATIVE) Urine Glucose (UA) Negative mg/dL (NEGATIVE) Urine Ketones 20 mg/dL (NEGATIVE) Urine Blood Negative (NEGATIVE) Urine Nitrite Negative (NEGATIVE) Urine Bilirubin Negative (NEGATIVE) Urine Urobilinogen Negative mg/dL (0.2-1.9) Urine Leukocyte Esterase Negative (NEGATIVE) Urine RBC <1 /HPF (0-2/HPF) Urine WBC None /HPF (0-5/HPF) Urine Squamous Epithelial Cells None /LPF (</=FEW) Urine Bacteria Negative /HPF (NONE-FEW) Urine Mucus None /HPF (NONE-FEW) EKG/Imaging Imaging EXAMINATION: CT head without IV contrast HISTORY: Seizure. Altered mental status. TECHNIQUE: Axial CT images of the head were obtained from the vertex to the skull base without IV contrast, with coronal and sagittal 2D reconstructed images. One of the following dose optimization techniques was utilized in the performance of this exam: Automated exposure control; adjustment of the mA and/ or kV according to the patient's size; or use of an iterative reconstruction technique. Specific details can be referenced in the facility's radiology CT exam operational policy. COMPARISON: 09/06/2017. FINDINGS: The intracranial contents are unremarkable. No CT evidence of intracranial hemorrhage, mass lesion, or acute infarct. No midline shift or extra-axial fluid collections. Choudhary-white differentiation is maintained. The calvarium is intact. The visualized paranasal sinuses and mastoid air cells are unopacified. IMPRESSION: Unremarkable noncontrast head CT. Report Dictated By: aNdeem Aguirre MD at 02/15/2018 8:15 PM ED Course/Re-evaluation Clinical Indication for ER IV: IV Access ED Course Labs and CT scan unremarkable. Waking up and able to interact better. No focal deficits noted on re-evaluation. Will increase Keppra and load with 1000mg IV right now. Instructed to contact neurology in the morning for further evaluation. Decision to Disposition Date: Feb 15, 2018 Decision to Disposition Time: 22:05 Depart Departure Latest Vital Signs Vital Signs Date Time Temp Pulse Resp B/P (MAP) Pulse Ox O2 Delivery O2 Flow Rate FiO2 02/15/18 22:20 72 13 02/15/18 22:17 92/48 (63) 02/15/18 22:15 96 02/15/18 19:00 98.2 Room Air Impression: Primary Impression: Seizure Condition: Improved Disposition: HOME OR SELF-CARE New Scripts Levetiracetam (KEPPRA XR) 500 Mg Tab.er.24h 500 MG PO DIRECTED, #90 TAB 0 Refills Take 2 tablets in the morning and 1 tablet at bedtime. Prov: JOSE MEDINA MD 02/15/18 Patient Instructions: Recurrent Seizures in Adults (ED) Additional Instructions: Increase Keppra to 500mg extended release tablets, 2 in the morning and 1 in the evening. You can keep using the Clonazepam dissolvables as needed for seizures. No other changes in medications at this time. Call your neurologist in the morning to discuss further treatment options and follow-up. JOSE MEDINA MD Feb 15, 2018 19:06
[2018-02-15] MEDS ORDERED: CLON-389 PO (19:09)
[2018-02-15] MEDS ORDERED: LORazepam 2 MG/ML VIAL IVP ONE (19:20)
--- NOTE | 2018-02-15 19:31 | EKG ---
FACILITY: [facility] [place] PATIENT NAME: CLARISSA MICHELLE : [id number] MR: [id number] V: [id number] EXAM DATE: ORDERING PHYSICIAN: JOSE MEDINA TECHNOLOGIST: YOHANA Olmos Reason : SEIZURE Blood Pressure : / mmHG Vent. Rate : 064 BPM Atrial Rate : 064 BPM P-R Int : 170 ms QRS Dur : 134 ms QT Int : 462 ms P-R-T Axes : 059 101 066 degrees QTc Int : 476 ms Normal sinus rhythm Right bundle branch block Abnormal ECG When compared with ECG of 06-SEP-2017 13:08, No significant change was found Confirmed by MIKI BRENNER ([id number]) on 02/16/2018 6:29:02 AM Referred By: Confirmed By:MIKI BRENNER
[2018-02-15 19:35] LABS: PLATELET COUNT, AUTOMATED 258 K/uL (150-450)
[2018-02-15] MEDS ORDERED: LEVE500T75 PO (20:01)
--- NOTE | 2018-02-15 20:23 | RADIOLOGY IMAGING REPORT ---
FACILITY: [facility] PATIENT NAME: Erika Crump : 1990 MR: [id number] V: [id number] EXAM DATE: ORDERING PHYSICIAN: JOSE MEDINA TECHNOLOGIST: [place] [facility] [place] Patient: Erika Crump : 1990 Visit/Account:[id number] Date of Sevice: 02/15/2018 EXAMINATION: CT head without IV contrast HISTORY: Seizure. Altered mental status. TECHNIQUE: Axial CT images of the head were obtained from the vertex to the skull base without IV c ontrast, with coronal and sagittal 2D reconstructed images. One of the following dose optimization techniques was utilized in the performance of this exam: Autom ated exposure control; adjustment of the mA and/or kV according to the patient's size; or use of an i terative reconstruction technique. Specific details can be referenced in the facility's radiology C T exam operational policy. COMPARISON: 09/06/2017. FINDINGS: The intracranial contents are unremarkable. No CT evidence of intracranial hemorrhage, mass lesion, or acute infarct. No midline shift or extra-axial fluid collections. Choudhary-white differentiation is maintained. The calvarium is intact. The visualized paranasal sinuses and mastoid air cells are unopacified. IMPRESSION: Unremarkable noncontrast head CT. Report Dictated By: Nadeem Aguirre MD at 02/15/2018 8:15 PM Report E-Signed By: Nadeem Aguirre MD at 02/15/2018 8:20 PM WSN:[id number]
[2018-02-15] MEDS ORDERED: levETIRAcetam(*)500 MG/5 ML VI 1,000 MG in NS(*) 0.9% 100 ML BAG 100 ML IVPB ONE (21:40)
[2018-02-15] MEDS ORDERED: [UNRECOGNIZED DRUG - CODE] PO (22:07)
[2018-02-15 22:17] VITALS: BP 92/48
== END 2018-02-15 22:15 | disposition home or self-care (01) ==
LOC: ER 19:24
DX: R56.9 Unspecified convulsions (principal); Z79.899 Other long term (current) drug therapy
CPT/HCPCS: 70450; 80305; 80320; 80329; 81001; 83735; 84443; 84703; 85025; 93005; 96374; 96375; 99284; J1953; J2060; J7050; 82040; 82247; 82310; 82374; 82435; 82565; 82947; 84075; 84132; 84155; 84295; 84450; 84460; 84520; 99283

== ENCOUNTER 2018-10-19 21:16 | Emergency (ER) | payer OTHER ==
[2017-08-17 14:22] VITALS: Wt 56.7 kg
[~2018-10-19 21:16] MED LIST changes: +CLON-389 PO; -HYDR-4309 PO; +HYDR-653 PO; +LEVE500T9 PO; +[UNRECOGNIZED DRUG - CODE] PO
[2018-10-19] MEDS ORDERED: LAMO100T52 PO (21:28)
[2018-10-19] MEDS ORDERED: LORazepam 2 MG/ML VIAL ONE (21:42)
[2018-10-19 22:02] LABS: PLATELET COUNT, AUTOMATED 245 K/uL (150-450)
--- NOTE | 2018-10-19 22:02 | EKG ---
FACILITY: [facility] PATIENT NAME: CLARISSA MICHELLE : [id number] MR: [id number] V: [id number] EXAM DATE: ORDERING PHYSICIAN: ELLIOTT VALLE TECHNOLOGIST: YOHANA Test Reason : NEURO Blood Pressure : / mmHG Vent. Rate : 069 BPM Atrial Rate : 069 BPM P-R Int : 174 ms QRS Dur : 140 ms QT Int : 450 ms P-R-T Axes : 061 102 064 degrees QTc Int : 482 ms Normal sinus rhythm Right bundle branch block T wave abnormality, consider lateral ischemia Abnormal ECG When compared with ECG of 15-FEB-2018 19:22, T wave inversion now evident in Lateral leads Confirmed by MIKI BRENNER ([id number]) on 10/20/2018 6:37:29 AM Referred By: Confirmed By:MIKI BRENNER
--- NOTE | 2018-10-19 22:22 | RADIOLOGY IMAGING REPORT ---
FACILITY: [facility] PATIENT NAME: Erika Crump : 1990 MR: [id number] V: [id number] EXAM DATE: ORDERING PHYSICIAN: ELLIOTT VALLE TECHNOLOGIST: Location: [facility] - [place] Patient: Erika Crump : 1990 Visit/Account:[id number] Date of Sevice: 10/19/2018 CHEST SINGLE AP COMPARISONS: None. ADDITIONAL PERTINENT HISTORY: Dyspnea FINDINGS: Cardiomediastinal silhouette: Negative. Pulmonary vasculature: Negative. Lung hayward: Negative. Pleural spaces: Negative. Osseous structures: Negative. Surrounding soft tissues: Negative. IMPRESSION: Normal single view of the chest. Report Dictated By: Gilbert Kerr MD at 10/19/2018 10:17 PM Report E-Signed By: Gilbert Kerr MD at 10/19/2018 10:18 PM WSN:[id number]
[2018-10-19 23:00] VITALS: BP 92/60
--- NOTE | 2018-10-19 23:00 | ER Report ---
History and Physical Time Seen By MD: 21:30 Hx. of Stated Complaint: patient has hx of seizures, today started having seizures, home medications not helping. HPI/ROS CHIEF COMPLAINT: Seizure HISTORY OF PRESENT ILLNESS: Patient is 28-year-old female with seizure history. Per patient and , her neurologist has recently been adjusting medications by decreasing Keppra and increasing Lamictal due to breakthrough seizures. Patient today had a half less keppra and her typical lamictal dose. She was withotu complaints today with normal diet, activity, no sig stress. She went to [employer] [place] with neighbor. Upon leaving, she had brief 1-2 min seizure activity that spontaneously resolved. She had no trauma during this witnessed episode. She subsequently had 5-6 further episodes each lasting less than 5 min, ultima tely resolving after clonazepam x 2. 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 Pt now denies c/o. She is sedate but awakens to vocice and answers questions appropriately REVIEW OF SYSTEMS: Constitutional: No fever, no chills. Eyes: No discharge. ENT: No sore throat. Cardiovascular: No chest pain, no palpitations. Respiratory: No cough, no shortness of breath. Gastrointestinal: No abdominal pain, no vomiting. Genitourinary: No hematuria. Musculoskeletal: No back pain. Skin: No rashes. Neurological: No headache. Remainder of the 14 system rev: Yes Allergies: Coded Allergies: povidone-iodine (Verified Allergy, Intermediate, RASH, 10/19/18) Home Meds Active Scripts Levetiracetam (KEPPRA XR) 500 Mg Tab.er.24h, 500 MG PO DIRECTED, #90 TAB 0 Refills Take 2 tablets in the morning and 1 tablet at bedtime. Prov:JOSE MEDINA MD 02/15/18 Reported Medications Lamotrigine (LAMOTRIGINE) 100 Mg Tablet, 2 TAB PO BID 10/19/18 Levetiracetam (LEVETIRACETAM) 500 Mg Tab.er.24h, 1000 MG PO QDAY, TAB 02/15/18 Clonazepam (CLONAZEPAM) 1 Mg Tab.rapdis, 1 MG PO PRN PRN for SEIZURE, #6 TAB 02/15/18 Reviewed Nurses Notes: Yes Old Medical Records Reviewed: Yes Hx Smoking: No Smoking Status: Never Smoker Exposure to Second Hand Smoke?: No Hx Substance Use Disorder: No Constitutional Vital Sign - Last 24 Hours 10/19/18 10/19/18 10/19/18 10/19/18 21:21 21:22 21:26 21:30 Temp 99.2 Pulse 63 84 91 Resp 8 12 17 B/P (MAP) 107/98 105/69 (81) Pulse Ox 97 98 99 O2 Delivery Room Air 10/19/18 10/19/18 10/19/18 10/19/18 21:31 21:36 21:41 21:46 Pulse 71 67 66 70 Resp 16 19 43 24 Pulse Ox 97 98 95 98 10/19/18 10/19/18 10/19/18 10/19/18 21:51 22:00 22:06 22:21 Pulse 70 72 78 Resp 9 15 22 B/P (MAP) 103/61 (75) Pulse Ox 98 98 99 10/19/18 10/19/18 10/19/18 10/19/18 22:30 22:36 22:51 23:00 Pulse 74 74 Resp 17 7 B/P (MAP) 101/68 (79) 92/60 (71) Pulse Ox 95 95 10/19/18 10/19/18 23:06 23:21 Pulse 71 67 Resp 25 10 Pulse Ox 92 95 Physical Exam General Appearance: The patient is awake, does not recall events that led to arrival, has no immediate need for airway protection and no signs of toxicity. Eyes: Pupils equal and round no pallor or injection. No nystagmus. She demosntrates photophobia. ENT, Mouth: Mucous membranes are moist. Dentition intact. No laxity. NO tongue laceration. Respiratory: There are no retractions, lungs are clear to auscultation. Cardiovascular: Regular rate and rhythm. no m/r/g Gastrointestinal: Abdomen is soft and non tender, no masses, bowel sounds normal. Neurological: awake, follows commands, no retrograde anesthesia. No focal deficits. Reflexes nl. Cerebellar exam nl. During neurologic evaluation pt develops 30 second seizure-like activity. This resolves spontaneously. no tongue biting or injury. Skin: Warm and dry, no rashes. Musculoskeletal: Neck is supple non tender. Extremities are nontender, nonswollen and have full range of motion. DIFFERENTIAL DIAGNOSIS: After history and physical exam differential diagnosis was considered for seizure, head injury/intracranial hemorrhage, trauma, non- epileptiform seizure Medical Decision Making Data Points Result Diagram: 10/19/18211910/19/182119 Laboratory Hematology Test 10/19/18 21:20 10/19/18 22:13 Red Blood Count 4.77 M/uL (4.17-5.56) Mean Corpuscular Volume 91.7 fL (80.0-96.0) Mean Corpuscular Hemoglobin 30.6 pg (26.0-33.0) Mean Corpuscular Hemoglobin Concent 33.4 g/dL (32.0-36.0) Red Cell Distribution Width 12.7 % (11.5-14.5) Mean Platelet Volume 8.5 fL (7.2-11.1) Neutrophils (%) (Auto) 60.7 % (39.4-72.5) Lymphocytes (%) (Auto) 32.0 % (17.6-49.6) Monocytes (%) (Auto) 6.2 % (4.1-12.4) Eosinophils (%) (Auto) 0.8 % (0.4-6.7) Basophils (%) (Auto) 0.3 % (0.3-1.4) Nucleated RBC Relative Count (auto) 0.0 /100WBC Neutrophils # (Auto) 5.7 K/uL (2.0-7.4) Lymphocytes # (Auto) 3.0 K/uL (1.3-3.6) Monocytes # (Auto) 0.6 K/uL (0.3-1.0) Eosinophils # (Auto) 0.1 K/uL (0.0-0.5) Basophils # (Auto) 0.0 K/uL (0.0-0.1) Nucleated RBC Absolute Count (auto) 0.00 K/uL Sodium Level 140 mmol/L (137-145) Potassium Level 4.2 mmol/L (3.5-5.0) Chloride Level 104 mmol/L (98-107) Carbon Dioxide Level 27 mmol/L (22-31) Blood Urea Nitrogen 9 mg/dl (7-18) Creatinine 0.80 mg/dl (0.52-1.04) Glomerular Filtration Rate Calc > 60.0 Random Glucose 95 mg/dl (75-110) Calcium Level 9.6 mg/dl (8.4-10.2) Phosphorus Level 3.7 mg/dl (2.5-4.5) Magnesium Level 2.1 mg/dl (1.7-2.2) Total Bilirubin 0.2 mg/dl (0.2-1.3) Aspartate Amino Transf (AST/SGOT) 38 U/L (0-35) Alanine Aminotransferase (ALT/SGPT) 24 U/L (0-56) Alkaline Phosphatase 70 U/L (0-126) Total Protein 7.9 g/dl (6.3-8.2) Albumin 4.9 g/dl (3.5-5.0) Human Chorionic Gonadotropin, Qual Negative (NEGATIVE) Salicylates Level < 10 mg/L Salicylate Last Dose Date unk Acetaminophen Level < 10 ug/ml Venous Blood pH 7.38 (7.31-7.41) Chemistry Test 10/19/18 21:20 10/19/18 22:13 White Blood Count 9.4 k/uL (4.5-11.0) Red Blood Count 4.77 M/uL (4.17-5.56) Hemoglobin 14.6 g/dL (12.0-16.0) Hematocrit 43.7 % (34.0-47.0) Mean Corpuscular Volume 91.7 fL (80.0-96.0) Mean Corpuscular Hemoglobin 30.6 pg (26.0-33.0) Mean Corpuscular Hemoglobin Concent 33.4 g/dL (32.0-36.0) Red Cell Distribution Width 12.7 % (11.5-14.5) Platelet Count 245 K/uL (150-450) Mean Platelet Volume 8.5 fL (7.2-11.1) Neutrophils (%) (Auto) 60.7 % (39.4-72.5) Lymphocytes (%) (Auto) 32.0 % (17.6-49.6) Monocytes (%) (Auto) 6.2 % (4.1-12.4) Eosinophils (%) (Auto) 0.8 % (0.4-6.7) Basophils (%) (Auto) 0.3 % (0.3-1.4) Nucleated RBC Relative Count (auto) 0.0 /100WBC Neutrophils # (Auto) 5.7 K/uL (2.0-7.4) Lymphocytes # (Auto) 3.0 K/uL (1.3-3.6) Monocytes # (Auto) 0.6 K/uL (0.3-1.0) Eosinophils # (Auto) 0.1 K/uL (0.0-0.5) Basophils # (Auto) 0.0 K/uL (0.0-0.1) Nucleated RBC Absolute Count (auto) 0.00 K/uL Glomerular Filtration Rate Calc > 60.0 Calcium Level 9.6 mg/dl (8.4-10.2) Phosphorus Level 3.7 mg/dl (2.5-4.5) Magnesium Level 2.1 mg/dl (1.7-2.2) Total Bilirubin 0.2 mg/dl (0.2-1.3) Aspartate Amino Transf (AST/SGOT) 38 U/L (0-35) Alanine Aminotransferase (ALT/SGPT) 24 U/L (0-56) Alkaline Phosphatase 70 U/L (0-126) Total Protein 7.9 g/dl (6.3-8.2) Albumin 4.9 g/dl (3.5-5.0) Human Chorionic Gonadotropin, Qual Negative (NEGATIVE) Salicylates Level < 10 mg/L Salicylate Last Dose Date unk Acetaminophen Level < 10 ug/ml Venous Blood pH 7.38 (7.31-7.41) Toxicology Test 10/19/18 21:20 Salicylates Level < 10 mg/L Salicylate Last Dose Date unk Acetaminophen Level < 10 ug/ml ED Course/Re-evaluation ED Course 28 f presents after reportedly having multiple seizures this evening. She has brief 30 second episode in Emergency Department that does not appear to be c/w generalized tonic-clonic seizure. Labs drawn immediately afterward do not show acidemia. 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 Pt's is amenable to this plan. Pt is without focal neurologic deficits and comfortable with this plan as well. Decision to Disposition Date: Oct 19, 2018 Decision to Disposition Time: 23:15 Depart Departure Latest Vital Signs Vital Signs Date Time Temp Pulse Resp B/P (MAP) Pulse Ox O2 Delivery O2 Flow Rate FiO2 10/19/18 23:21 67 10 95 10/19/18 23:00 92/60 (71) 10/19/18 21:22 99.2 Room Air Impression: Primary Impression: Seizure Condition: Improved Disposition: HOME OR SELF-CARE Referrals: CÉSAR TAPIA (PCP) 1 Day Patient Instructions: Recurrent Seizures in Adults (ED) Additional Instructions: As we discussed, I talked with the neurologist horizontal drill operator who agrees that it is reasonable to go home and give Clonazepam as previously instructed. If there are new or different symptoms that you are not comfortable with, please return immediately for furtehr evaluation. Please call your neurologist if you have not heard from them tomorrow mid morning. ELLIOTT VALLE MD Oct 19, 2018 23:00
== END 2018-10-19 23:36 | disposition home or self-care (01) ==
LOC: ER 21:40
DX: G40.909 Epilepsy, unspecified, not intractable, without status epilepticus (principal); I45.10 Unspecified right bundle-branch block; R06.00 Dyspnea, unspecified; H53.149 Visual discomfort, unspecified
CPT/HCPCS: 36415; 71045; 80329; 82800; 83735; 84100; 84443; 84703; 85025; 93005; 99284; J2060; 82040; 82247; 82310; 82374; 82435; 82565; 82947; 84075; 84132; 84155; 84295; 84450; 84460; 84520

== ENCOUNTER → 2018-11-11 | Outpatient (REF) | payer OTHER ==
[2017-08-17 14:22] VITALS: BMI 24.2
[~2018-11-11] MED LIST changes: +LAMO100T52 PO
== END ==
PROVIDERS: ATTEND Nurse Practitioner Family
DX: R42 Dizziness and giddiness (principal)
CPT/HCPCS: 80175; 82040; 82247; 82310; 82374; 82435; 82565; 82947; 84075; 84132; 84155; 84295; 84450; 84460; 84520

== ENCOUNTER → 2018-11-11 | Outpatient (REF) | payer OTHER ==
[2017-08-17 14:22] VITALS: BMI 24.2
== END ==
PROVIDERS: ATTEND Nurse Practitioner Family
DX: R42 Dizziness and giddiness (principal)

== ENCOUNTER 2018-11-22 11:15 | Emergency (ER) | payer OTHER ==
[2017-08-17 14:22] VITALS: BMI 24.2
[~2018-11-22 11:15] MED LIST changes: +levETIRAcetam(*)500 MG/5 ML VI 1,000 MG in NS(*) 0.9% 100 ML BAG 100 ML IV ONE
[2018-11-22] MEDS ORDERED: DEXTROSE 5% IVPB ONE (12:00)
[2018-11-22] MEDS ORDERED: LORAZEPAM IVPB ONE (12:00)
--- NOTE | 2018-11-22 16:54 | EKG ---
FACILITY: [facility] PATIENT NAME: CLARISSA MICHELLE : [id number] MR: [id number] V: [id number] EXAM DATE: ORDERING PHYSICIAN: HAWK MART TECHNOLOGIST: CHRISS Olmos Reason : NEURO Blood Pressure : / mmHG Vent. Rate : 086 BPM Atrial Rate : 086 BPM P-R Int : 196 ms QRS Dur : 128 ms QT Int : 416 ms P-R-T Axes : 061 113 061 degrees QTc Int : 497 ms Normal sinus rhythm Right bundle branch block Lateral T wave abnormalities has resolved from previous Confirmed by ABELARDO WARE ([id number]) on 11/22/2018 6:38:17 PM Referred By: BARRON Confirmed By:ABELARDO WARE
[2018-11-22 18:07] LABS: PLATELET COUNT, AUTOMATED 253 K/uL (150-450)
--- NOTE | 2018-11-22 18:23 | RADIOLOGY IMAGING REPORT ---
FACILITY: [facility] [place] PATIENT NAME: Erika Crump : 1990 MR: [id number] V: [id number] EXAM DATE: ORDERING PHYSICIAN: HAWK MART TECHNOLOGIST: [place] [facility] [place]rika Crump : 1990 Visit/Account:[id number] Date of Sevice: 11/22/2018 Examination: CHEST SINGLE AP Comparison: 10/19/2018. History: Intubation. Findings: The tip the endotracheal tube is approximately 3 cm above the valeria. Visualized airways ar e otherwise unremarkable. No consolidation, nodule, or peribronchial inflammation. No pneumothorax, edema, or effusion. Cardiac and hilar contour size is normal. Osseous structures are intact. IMPRESSION: Intubation. No findings of acute cardiopulmonary disease. Report Dictated By: Modesto Love MD at 11/22/2018 6:16 PM Report E-Signed By: Modesto Love MD at 11/22/2018 6:19 PM WSN:[id number]
--- NOTE | 2018-11-22 18:25 | RADIOLOGY IMAGING REPORT ---
FACILITY: [facility] [place] PATIENT NAME: Erika Crump : 1990 MR: [id number] V: [id number] EXAM DATE: ORDERING PHYSICIAN: HAWK MART TECHNOLOGIST: Location: [facility] [place] Patient: Erika Crump : 1990 Visit/Account:[id number] Date of Sevice: 11/22/2018 Examination: CHEST SINGLE AP Comparison: Earlier the same day. History: Enteric tube placement. Findings: One view of the lower chest and upper abdomen. An enteric tube terminates in the region of the mid stomach with the side-port at or just distal to t he expected location of the gastroesophageal junction. Visualized bowel gas pattern is unremarkable. No evidence of mass effect or organomegaly in the upper abdomen. No findings of acute disease in the visualized lower thorax. Osseous structures are intact. IMPRESSION: Enteric tube position as described above. Report Dictated By: Modesto Love MD at 11/22/2018 6:19 PM Report E-Signed By: Modesto Love MD at 11/22/2018 6:21 PM WSN:[id number]
[2018-11-23] MEDS ORDERED: LORazepam 2 MG/ML VIAL IVP ONE ×4 (12:25)
[2018-11-23] MEDS ORDERED: [UNRECOGNIZED DRUG - MIXTURE] IVPB ONE (12:25)
[2018-11-23] MEDS ORDERED: NS(*) 0.9% 1000 ML BAG 1,000 ML IV ONE ×3 (12:25)
[2018-11-23] MEDS ORDERED: ROCURONIUM BROM 10 MG/ML 10 ML IVP PRN (12:25)
[2018-11-23] MEDS ORDERED: SUCCINYLCHOL CHL 200MG/10ML VL IVP ONE (12:25)
[2018-11-23] MEDS ORDERED: PROPOFOL(*)1000 MG/100 ML VIAL 100 ML IV PRN (12:25)
[2018-11-23] MEDS ORDERED: ETOMIDATE 20 MG/10 ML VIAL IVP ONE (12:25)
[2018-11-23] MEDS ORDERED: fentaNYL CITR 100 MCG/2 ML AMP IVP ONE ×2 (12:25)
[2018-11-29] MEDS ORDERED: MEDR150V11 IM (10:46)
== END 2018-11-22 13:25 | disposition home or self-care (01) ==
LOC: ER 11:15
DX: G40.901 Epilepsy, unspecified, not intractable, with status epilepticus (principal); R06.00 Dyspnea, unspecified
CPT/HCPCS: 31500; 36415; 71045; 80305; 81001; 84703; 85025; 93005; 94002; 94770; 96361; 96365; 96375; 96376; 99285; J0330; J1953; J2060; J2704; J3010; J3490; J7030; J7050; J7060; 82040; 82247; 82310; 82374; 82435; 82565; 82947; 84075; 84132; 84155; 84295; 84450; 84460; 84520

== ENCOUNTER → 2018-11-22 | Outpatient (CLI) | payer OTHER ==
[2017-08-17 14:22] VITALS: BMI 24.2
== END ==
LOC: AMB 13:02
PROVIDERS: ATTEND Nurse Practitioner
DX: R41.82 Altered mental status, unspecified (principal); R13.0 Aphagia
CPT/HCPCS: A0425; A0429